=== PATIENT | female | born 1980 | race Caucasian/White ===

== ENCOUNTER → 2020-08-26 17:19 | Outpatient (BNVA) | payer OTHER, SELFPAY | PROVIDERS: Family Provider Family Medicine; PCP Family Medicine; Visit Provider Nurse Practitioner Family | DX: Z20.828 Contact with and (suspected) exposure to other viral communicable diseases (principal) | CPT/HCPCS: 87635 ==

== ENCOUNTER → 2024-02-14 10:16 | Outpatient (BNVA) | payer MEDICAID, SELFPAY | PROVIDERS: Family Provider Family Medicine; Visit Provider Emergency Medicine | DX: Z32.01 Encounter for pregnancy test, result positive (principal) | CPT/HCPCS: 81025 ==

== ENCOUNTER 2024-02-17 18:29 | Emergency (ER) | payer MEDICAID, SELFPAY ==
[2024-02-17 18:50] VITALS: BP 154/90; PULSE 77; RESP 18; TEMP 36.8; O2SAT 100; BMI 40.8
--- NOTE | 2024-02-17 19:44 | USR_ITS ---
PROCEDURE INFORMATION: Exam: US First Trimester, Transabdominal and US , Transvaginal Exam date and time: 02/17/2024 8:10 PM Age: 43 years old Clinical indication: Lmp or gestational age (in weeks): 8w 5d by lmp; Antepartum complications; Bleeding; ; Patient HX: /a0/l2 both vaginal births; Additional info: 6 - 8 weeks gestation, vaginal bleeding x 1 day LABS AND CLINICAL REPORTS: Last menstrual period start date: 12/18/2023 Gestational age (Established): 8 w 5 d Estimated due date (Established): 09/23/2024 TECHNIQUE: Imaging protocol: Real-time transabdominal obstetrical ultrasound of the maternal pelvis and a first trimester , less than 14 weeks 0 days, with image documentation. Transvaginal imaging was used for better evaluation of the fetus, adnexa, and/or cervix. COMPARISON: No relevant prior studies available. FINDINGS: GESTATION: Gestation: Intrauterine gestation is visualized. No pole is visualized. Yolk sac is visualized. Embryonic/ heart rate: Not visualized. Extra-embryonic membranes/Placenta: Unremarkable. No subchorionic bleed. Amniotic/Chorionic fluid: Amniotic and extra-amniotic fluid are normal for gestational age. BIOMETRY: Gestational age (AUA): 5 w 5 d Estimated due date (AUA): 10/14/2024 Mean sac diameter: 0.99 cm. EGA (MSD) is 5 w 5 d MATERNAL: Uterus: Uterus measures 7.3 cm x 6.4 cm x 6.5 cm. Cervix: Unremarkable. Right ovary/adnexa: Right ovary measures 4.2 cm x 3.9 cm x 3.6 cm. Right ovarian volume is 31.7 mL. Left ovary/adnexa: Left ovary measures 3.1 cm x 4 cm x 2.4 cm. Left ovarian volume is 15.3 mL. Intraperitoneal space: No intraperitoneal free fluid. US/US OB <=14 wk fetus w transvag IMPRESSION: 1. Gestational sac is seen in the uterus with estimated gestational age of 5 weeks and 5 days. 2. Blood is seen on the transducer at the end of the exam, suggestive of threatened .
--- NOTE | 2024-02-17 19:46 | W.ED.PREGNAN ---
HPI - General: Chief complaint: OB/Uterine Contractions Stated complaint: vaginal bleeding, 6- wks preg Time Seen by Provider: 02/17/24 19:39 History of Present Illness: Patient presents to the ER with vaginal spotting x 1 day. She states she is approximately 6 to 8 weeks . Patient had light spotting earlier this morning and heavier spotting/light bleeding this afternoon. Patient does states she went to the care center and had a abdominal ultrasound which was unremarkable they may have seen a gestational sac or may not have that she is on for sure. Patient has not had any previous miscarriages and is not having any abdominal pain or cramping. Patient says her blood type is O+. Date of Last Menstrual Period: 12/18/23 Review of Systems General: Reports: 10 or more systems reviewed and unremarkable except in HPI and below PFSH ED PFSH: Family History Father CAD (coronary artery disease) Family/Other Diabetes Brother Hypertension Social History Smoking and tobacco/nicotine status: former use of tobacco/nicotine Quit status (tobacco/nicotine): has quit using Year quit tobacco: 2014 Second hand smoke exposure: No Alcohol intake: never Substance/Drug Use: never Female Reproductive History: Date of last menstrual period: 12/18/23 Spontaneous abortions: No Physical Exam Const: COMMON NORMALS: no acute distress, average body habitus, patient oriented x3, no limitations, healthy appearing, alert and well nourished HENMT: COMMON NORMALS: normocephalic, atraumatic, hearing grossly normal bilaterally, external ears normal, Normal external nose present, moist oral mucous membranes and oropharynx normal HEAD & SCALP: normocephalic and atraumatic NOSE: Normal external nose present EXTERNAL EAR: Yes external ears normal Neck/C-Spine: COMMON NORMALS: full ROM, no lymphadenopathy, supple, no meningeal signs, no JVD and Thyroid normal THYROID: Thyroid normal Chest: COMMONS NORMALS: normal inspection of the chest and normal palpation of entire chest wall Resp: COMMON NORMALS: normal respiratory effort, No retractions, No use of accessory muscles and clear to auscultation bilaterally AUSCULTATION: clear to auscultation bilaterally Cardio: COMMON NORMALS: no JVD, regular rate, regular rhythm, S1 normal heart sound present, S2 normal heart sound present, No gallops present (Cardio), No clicks present (Cardio), No murmurs present (Cardio) and No rub (Cardio) RATE: regular rate RHYTHM: regular rhythm HEART SOUNDS: S1 normal heart sound present and S2 normal heart sound present GI: COMMON NORMALS: Normal to inspection, nondistended, normoactive bowel sounds present, Soft to palpation, non-tender, No hepatosplenomegaly present and no masses PALPATION: Yes Soft to palpation and Yes No hepatosplenomegaly present Neuro: COMMON NORMALS: patient oriented x3 SENSORIUM/ORIENTATION: Yes alert MENINGEAL SIGNS: Yes no meningeal signs Course Vital Signs: Vital signs: Vital Signs Temperature 98.2 F 02/17/24 18:50 Pulse Rate 78 02/17/24 20:05 Respiratory Rate 16 02/17/24 20:05 Blood Pressure 108/88 02/17/24 20:05 Pulse Oximetry 97 02/17/24 20:05 Oxygen Delivery Me thod Room Air 02/17/24 18:50 MDM - OB/Uterine Contractions Medical Decision Making Patient presents to the ER with positive test and vaginal bleeding. OB ultrasound was obtained which showed gestational sac estimated 5 weeks and 5 days, but is also seen. Patient's hCG was approximately 6400. These results was discussed with the patient patient needs repeat hCG in approximately 48 hours. Differential Diagnosis Unlikely normal delivery at term, hemorrhage, -induced hypertension, premature labor, pre-eclampsia or eclampsia Lab Data I reviewed the patient's lab results. Radiology Impressions Obstetrics Ultrasound 02/17/24 19:44 IMPRESSION: 1. Gestational sac is seen in the uterus with estimated gestational age of 5 weeks and 5 days. 2. Blood is seen on the transducer at the end of the exam, suggestive of threatened . Laboratory Results Ser , Semi-Qnt 6411.00 mIU/mL 02/17/24 20:50 All radiology interpretation(s) finalized by discharge Discharge Plan Discharge Patient Disposition: Home Clinical Impression: , threatened Condition: Stable Prescriptions: No Action PNV 119-iron fum-folic acid 29 mg iron- 1 mg tablet PO omega-3 fatty acids 1,000 mg capsule 1,000 mg PO DAILY Discharge Orders: Discharge ED (Routine); Ordered 02/17/24 Ordered By: Dalton Doss Referrals: Rylie Macias FNP [Primary Care Provider] - Russell Odom [Family Provider] - Patient Instructions: Threatened Miscarriage (ED) Activity Restrictions/Additional Instructions: Your quantitative hCG was approximately 6400. Please have this redrawn in approximately 48 to 72 hours as it should go up if the is viable. Please follow-up with your B[facility]ING [facility] STITCHER for further evaluation and treatment. Coding Level of Care Code ED Document Preparation Specialist for Suraj Serra
[2024-02-17 20:05] VITALS: BP 108/88; PULSE 78; RESP 16; O2SAT 97
[2024-02-17 22:30] VITALS: BP 148/82; PULSE 75; RESP 16; O2SAT 98
[2024-02-17 22:41] VITALS: BP 148/92; PULSE 75; RESP 16; O2SAT 98
== END 2024-02-17 22:43 | disposition home or self-care (01) ==
PROVIDERS: Emergency Provider Emergency Medicine; Family Provider Family Medicine; PCP Nurse Practitioner
DX: O20.0 Threatened abortion (principal); Z3A.01 Less than 8 weeks gestation of pregnancy; Z87.891 Personal history of nicotine dependence
CPT/HCPCS: 36415; 76801; 76817; 84702; 99284

== ENCOUNTER → 2024-02-19 13:39 | Outpatient (BNVA) | payer MEDICAID, SELFPAY | PROVIDERS: Family Provider Family Medicine; PCP Nurse Practitioner; Visit Provider Nurse Practitioner Family | DX: O20.0 Threatened abortion (principal) | CPT/HCPCS: 84702 ==

== ENCOUNTER 2024-03-27 08:27 | Outpatient (CLI) | payer MEDICAID, SELFPAY ==
--- NOTE | 2024-03-27 08:45 | US_ITS ---
WS: [id number] US transvaginal [id number] HISTORY: O03.9 - Complete or unspecified spontaneous . COMPARISON: 02/17/2024 Uterus: 9.5 cm x 6.6 cm x 6.0 cm. Normal size anteverted uterus. No fibroid or mass. Endometrium: 1.7 cm. Mildly thickened endometrium. Endometrium is homogeneous without increased vascu larity. No evidence for retained products of conception. Right ovary: 4.0 cm x 2.7 cm x 3.1 cm. Normal size and vascularity, no cystic or solid masses. Left ovary: 3.5 cm x 4.4 cm x 2.9 cm. Normal size and vascularity, no cystic or solid masses. Dominan t follicle LEFT ovary measures 1.6 x 1.8 x 2.1 cm. Physiologic free fluid in the cul-de-sac. US/US transvaginal [id number] IMPRESSION: Mildly thickened but homogeneous endometrium. No retained products of conceptio n.
== END 2024-03-27 08:28 | disposition home or self-care (01) ==
LOC: RAD 08:27
PROVIDERS: Family Provider Family Medicine; PCP Nurse Practitioner; Visit Provider Nurse Practitioner
DX: O03.9 Complete or unspecified spontaneous abortion without complication (principal)
CPT/HCPCS: 76830; 85025

== ENCOUNTER → 2024-06-02 15:13 | Outpatient (BNVA) | payer MEDICAID, SELFPAY | PROVIDERS: Family Provider Family Medicine; PCP Nurse Practitioner; Visit Provider Nurse Practitioner | DX: N92.6 Irregular menstruation, unspecified (principal); E28.2 Polycystic ovarian syndrome | CPT/HCPCS: 83001 ==

== ENCOUNTER 2024-10-30 14:56 | Emergency (ER) | payer MEDICAID, SELFPAY ==
[2024-10-30 15:11] VITALS: BP 231/129; PULSE 83; RESP 16; TEMP 36.8; O2SAT 97; BMI 39.3
--- NOTE | 2024-10-30 15:21 | ECG_ITS ---
[facility] Test Date: 2024-10-30 Pat Name: Shiela Campos Department: Room: Gender: Female Resource Program Teacher: : 1980 Requested By: Michael Kelly Order Number: [id number] Antonia MD: Inocencio Rodriguez M.D. Measurements Intervals [place] Rate: 73 P: 4 NM: 177 QRS: 9 QRSD: 104 T: 17 QT: 370 QTc: 410 Interpretive Statements SINUS RHYTHM INCOMPLETE RIGHT BUNDLE BRANCH BLOCK [90+ ms QRS DURATION, TERMINAL R IN V1/V2, 40+ ms S IN I/aVL/V4/V5/V6] POSSIBLE ANTERIOR MYOCARDIAL INFARCTION , PROBABLY OLD [30 ms Q WAVE IN V3/V4, OR R < 0.2 mV IN V4] No previous ECG available for comparison Electronically Signed On 10-31-2024 13:18:46 SHIPYARD SUPERVISOR by Inocencio Rodriguez M.D. [email or web address]
--- NOTE | 2024-10-30 15:33 | ED_ITS ---
HPI - General Adult 2 General: Chief complaint: General Medical Stated complaint: high bp (Sent by Gilberto) Time Seen by Provider: 10/30/24 15:20 Source: patient Mode of arrival: ambulatory Limitations: no limitations History of Present Illness: 44-year-old female is here with high blo od pressure she had seen her PCP today and was sent here as her blood pressure was in the 200s she states she has had history of high blood pressures in the past when she has been to her primary care doctor she is not on any medication currently. She states that her blood pressure tends to run high she states that she denies any chest pain headache states she does have some fullness feeling in her ears denies any fever Associated symptoms: Deny chest pain, dyspnea, headache(s), nausea, rash or vomiting Related Data Home Medications Medication Instructions Recorded Confirmed norgestimate 0.18 mg/0.215 mg/0.25 1 tab PO DAILY 10/30/24 10/30/24 mg-ethinyl estradiol 25 mcg tablet ([id number]) Previous Rx's Medication Instructions Recorded amlodipine 10 mg tablet (Norvasc) 10 mg PO DAILY #30 tabs 10/30/24 Allergies Allergy/AdvReac Type Severity Reaction Status Date / Time Penicillins Allergy Intermediate rash, itch Verified 10/30/24 15:11 Review of Systems 2 Const: Denies: fever(s), chills, body aches or change in appetite Eyes: Denies: blurry vision or eye discomfort ENMT: Denies: throat pain or dental pain Card: Denies: chest pain Resp: Denies: dyspnea GI: Denies: abdominal pain, nausea, vomiting or diarrhea Musc: Denies: neck pain or back pain Skin/Breast: Denies: rash Neuro: Denies: headache(s) PFSH ED 2 PFSH: Medical History PCOS (polycystic ovarian syndrome) Family History Father CAD (coronary artery disease) Family/Other Diabetes Brother Hypertension Social History Smoking and tobacco/nicotine status: never used tobacco/nicotine Quit status (tobacco/nicotine): has quit using Year quit tobacco: 2014 Second hand smoke exposure: No Alcohol intake: never Substance/Drug Use: never Female Reproductive History: Spontaneous abortions: No Physical Exam 2 Const: COMMON NORMALS: no acute distress, patient oriented x3 and healthy appearing HENMT: COMMON NORMALS: normocephalic and atraumatic HEAD & SCALP: n ormocephalic and atraumatic Eye: COMMON NORMALS: conjunctivae normal CONJUNCTIVA: Yes conjunctivae normal Neck/C-Spine: COMMON NORMALS: full ROM and supple Chest: COMMONS NORMALS: normal inspection of the chest Resp: COMMON NORMALS: normal respiratory effort, No retractions, No use of accessory muscles and clear to auscultation bilaterally AUSCULTATION: clear to auscultation bilaterally Cardio: COMMON NORMALS: regular rate, regular rhythm and No murmurs present (Cardio) RATE: regular rate RHYTHM: regular rhythm Extremity: COMMON NORMALS: normal to inspection and full ROM Neuro: COMMON NORMALS: patient oriented x3, moves all extremities and no focal motor deficits Psych: COMMON NORMALS: mental status grossly normal, Normal thought process present and cooperative THOUGHT PROCESS: Normal thought process present Skin: COMMON NORMALS: no rashes or lesions noted and no wounds GENERAL SKIN EXAM: no rashes or lesions noted Course 2 Vital Signs: Vital signs: Vital Signs Temperature 98.3 F 10/30/24 15:11 Pulse Rate 80 10/30/24 17:17 Respiratory Rate 15 10/30/24 15:43 Blood Pressure 201/93 10/30/24 17:17 Pulse Oximetry 98 10/30/24 17:17 MDM - General Adult Medical Decision Making Patient presents with hypertension she has been asymptomatic here she has been hypertensive for quite some time she states we will start her on Norvasc her blood pressure has improved here she is to take a log of her blood pressure and follow-up with her PCP to see if she needs any adjustment if she has any worsening symptoms she is to return to the ER she understands agrees to plan. Medical Records I reviewed the patient's medical records. Lab Data I reviewed the patient's lab results. 10/30/24 15:50 10/30/24 15:50 Laboratory Results WBC 5.10 10^3/uL (3.29-11.43) 10/30/24 15:50 RBC 4.61 10^6/uL (3.85-5.65) 10/30/24 15:50 Hgb 12.80 g/dL (11.27-16.99) 10/30/24 15:50 Hct 39.7 % (36-47) 10/30/24 15:50 MCV 86.1 fl (85-98) 10/30/24 15:50 MCH 27.8 pg (27-33) 10/30/24 15:50 MCHC 32.2 g/dL (30-55) 10/30/24 15:50 RDW 12.2 % (12.1-15.1) 10/30/24 15:50 Plt Count 201 10^3/cmm (157-399) 10/30/24 15:50 MPV 10.6 fL (7.4-10.4) H 10/30/24 15:50 Neut % (Auto) 62.7 % 10/30/24 15:50 Lymph % (Auto) 27.3 % 10/30/24 15:50 Garrett % (Auto) 7.8 % 10/30/24 15:50 Eos % (Auto) 1.0 % 10/30/24 15:50 Baso % (Auto) 0.8 % 10/30/24 15:50 Neut # (Auto) 3.20 10^3/uL (1.8-7.7) 10/30/24 15:50 Lymph # (Auto) 1.4 10^3/uL (0.8-4.8) 10/30/24 15:50 Garrett # (Auto) 0.4 10^3/uL (0.2-0.9) 10/30/24 15:50 Eos # (Auto) 0.1 10^3/uL (0.0-0.8) 10/30/24 15:50 Baso # (Auto) 0.0 10^3/uL (0.0-0.1) 10/30/24 15:50 Nucleated RBC % (auto) 0 % 10/30/24 15:50 Nucleated RBCs # 0.0 /100WBC 10/30/24 15:50 Sodium 137 mmol/L (136-145) 10/30/24 15:50 Potassium 3.8 mmol/L (3.5-5.1) 10/30/24 15:50 Chloride 102 mmol/L (98-107) 10/30/24 15:50 Carbon Dioxide 22 mmol/L (22-29) 10/30/24 15:50 Anion Gap 16.8 (5-19) 10/30/24 15:50 BUN 7 mg/dL (6-20) 10/30/24 15:50 Creatinine 0.6 mg/dL (0.5-0.9) 10/30/24 15:50 GFR Calculation 109.6 mL/min (90-130) 10/30/24 15:50 Glucose 88 mg/dL (65-115) 10/30/24 15:50 Calculated Osmolality 281 mOsm/kg (285-295) L 10/30/24 15:50 Calcium 9.0 mg/dL (8.5-10.5) 10/30/24 15:50 Total Bilirubin 0.2 mg/dL (0.15-1.2) 10/30/24 15:50 AST 20 U/L (0-32) 10/30/24 15:50 ALT 29 U/L (0-33) 10/30/24 15:50 Alkaline Phosphatase 96 U/L (35-105) 10/30/24 15:50 Total Protein 6.8 g/dL (6.6-8.7) 10/30/24 15:50 Albumin 4.1 g/dL (3.5-5.2) 10/30/24 15:50 Globulin 2.7 g/dL (1.3-4.6) 10/30/24 15:50 No radiology studies performed this visit EKG Data EKG 1: I personally reviewed and interpreted this EKG as follows: EKG interpretation date: 10/30/24 EKG interpretation time: 15:31 Interpretation: nsr hr [address] or t wave abnormalities qrs 104 qtc 396 Discharge Plan Discharge Patient Disposition: Home Clinical Impression: Hypertension Condition: Stable Prescriptions: New amlodipine [Norvasc] 10 mg tablet 10 mg PO DAILY Qty: 30 0RF No Action norgestimate-ethinyl estradiol [Ydl-Tf-Kxnkkexsh] 0.18/0.215/0.25 mg-25 mcg tablet 1 tab PO DAILY Discharge Orders: Discharge ED (Routine); Ordered 10/30/24 Ordered By: Michael Kelly Referrals: Rylie Macias FNP [Primary Care Provider] - 1-3 days Russell Odom [Referring] - Discharge Diet: Advance as tolerated Discharge Activity: Resume usual activity Patient Instructions: Hypertension (ED) Coding Level of Care Code ED Freelance Court Stenographer for Suraj Serra
[2024-10-30] MEDS: hyDRALAzine 20 mg/mL INJ 1 mL 10 MG IVP ×2 (15:42→16:57)
[2024-10-30 15:43] VITALS: BP 206/115; PULSE 77; RESP 15; O2SAT 98
[2024-10-30 15:50] VITALS: BP 187/111
[2024-10-30 15:57] LABS: Basophils % 0.8 %; Eosinophils # 0.1 10^3/uL (0.0-0.8); Hematocrit 39.7 % (36-47); Lymphocytes # 1.4 10^3/uL (0.8-4.8); Lymphocytes % 27.3 %; Mean Corpuscular HGB Conc 32.2 g/dL (30-55); Mean Corpuscular Hemoglobin 27.8 pg (27-33); Mean Corpuscular Volume 86.1 fl (85-98); Mean Platelet Volume 10.6 fL (7.4-10.4); Monocytes # 0.4 10^3/uL (0.2-0.9); Monocytes % 7.8 %; Neutrophils % 62.7 %; Nucleated Red Blood Cells % 0 %; Platelet Count 201 10^3/cmm (157-399); Red Blood Count 4.61 10^6/uL (3.85-5.65); Red Cell Distribution Width 12.2 % (12.1-15.1)
[2024-10-30] MEDS: amlodipine 10 mg Tablet PO (16:06)
[2024-10-30 16:22] LABS: Alanine Aminotransferase 29 U/L (0-33); Albumin Level 4.1 g/dL (3.5-5.2); Alkaline Phosphatase 96 U/L (35-105); Anion Gap 16.8 (5-19); Aspartate Amino Transferase 20 U/L (0-32); Blood Urea Nitrogen 7 mg/dL (6-20); Carbon Dioxide 22 mmol/L (22-29); Chloride 102 mmol/L (98-107); Creatinine Clr Calc Pharmacy 159.0814; Globulin 2.7 g/dL (1.3-4.6); Glomerular Filtration Rate 109.6 mL/min (90-130); Glucose 88 mg/dL (65-115); Osmolality Calculated 281 mOsm/kg (285-295); Potassium 3.8 mmol/L (3.5-5.1); Sodium 137 mmol/L (136-145); Total Bilirubin 0.2 mg/dL (0.15-1.2); Total Protein 6.8 g/dL (6.6-8.7)
[2024-10-30 16:51] VITALS: BP 194/99; PULSE 78; O2SAT 97
[2024-10-30 17:17] VITALS: BP 201/93; PULSE 80; O2SAT 98
[2024-10-30 17:23] VITALS: BP 201/93; PULSE 83; O2SAT 98
== END 2024-10-30 17:26 | disposition home or self-care (01) ==
PROVIDERS: Emergency Provider Emergency Medicine; PCP Nurse Practitioner
DX: I10 Essential (primary) hypertension (principal); Z87.891 Personal history of nicotine dependence
CPT/HCPCS: 36415; 80053; 85025; 93005; 96374; 96376; 99284; J0360

== ENCOUNTER → 2024-11-06 13:43 | Outpatient (BNVA) | payer MEDICAID, SELFPAY | PROVIDERS: PCP Nurse Practitioner; Visit Provider Nurse Practitioner | DX: I10 Essential (primary) hypertension (principal) | CPT/HCPCS: 80061; 84443 ==